=== PATIENT | male | born 1990 | race Two or more races ===

== ENCOUNTER 2025-04-05 10:34 | Outpatient (CLI) | payer OTHER ==
[2025-04-05 10:50] LABS: Urine Bacteria None Seen /hpf (None Seen)
[2025-04-05 11:00] LABS: Urine Blood TRACE /uL (Negative); Urine Clarity Clear (Clear); Urine Color Yellow (Yellow); Urine Hyaline Cast FEW /lpf (0 - 2); Urine Mucus FEW (None Seen); Urine Protein, UAD Negative (Negative); Urine Specific Gravity 1.028 (1.001-1.035); Urine Squamous Epithelial Cell None Seen /hpf (<5); Urine Urobilinogen Normal (Negative); Urine WBC < 1 /HPF (0-3); Urine pH 5.5 (5.0-9.0)
[2025-04-05 11:16] LABS: Basophils # (auto) 0 10 ^3/uL (0-0.2); Basophils % (auto) 0.4 % (0.0-2.0); Eosinophils # (auto) 0 10 ^3/uL (0-0.8); Eosinophils % (auto) 0.2 % (0.0-7.0); Hematocrit 42.6 % (41.0-53.0); Hemoglobin 14.9 g/dL (13.5-17.5); Mean Corpuscular Hemoglobin 32.5 pg (28.0-32.0); Mean Corpuscular Volume 92.8 fL (80.0-100.0); Monocytes # (auto) 0.3 10 ^3/uL (0-1.3); Monocytes % (auto) 4.7 % (0.0-12.0); Neutrophils # (auto) 4.2 10 ^3/uL (1.6-8.6); Neutrophils % (auto) 75.7 % (37.0-80.0); Platelet Count (auto) 218 10^3/uL (140-450); Red Blood Cells 4.59 10^6/uL (4.5-5.90); Red Cell Distribution Width 13.4 % (11.8-14.3); White Blood Cell 5.5 10^3/uL (4.4-10.8)
[2025-04-05 11:28] LABS: Prostate Specific Antigen 1.42 ng/mL (0.0-4.0)
[2025-04-05 11:29] LABS: % Iron Saturation 40.7 % (20-55)
[2025-04-05 11:33] LABS: Alanine Aminotransferase 12 U/L (7-40); Albumin 4.3 g/dL (3.2-4.8); Alkaline Phosphatase 62 U/L (46-116); Anion Gap 11 (5-15); Aspartate Aminotransferase 13 U/L (13-40); BUN/Creatinine Ratio 16.3 (10.0-20.0); Blood Urea Nitrogen 14 mg/dL (9-23); Calcium 9.7 mg/dL (8.7-10.4); Carbon Dioxide 24 mmol/L (20-31); Chloride 108 mmol/L (98-107); Cholesterol 172 mg/dL (< 200); Glucose 83 mg/dL (74-106); HDL Cholesterol 48 mg/dL (40-59); LDL Cholesterol 117 mg/dL (< 100); Magnesium 1.8 mg/dL (1.6-2.6); Sodium 143 mmol/L (136-145); Total Protein 6.5 g/dL (5.7-8.2); Triglycerides 62 mg/dL (< 150)
[2025-04-05 11:35] LABS: Bilirubin, Total 2.1 mg/dL (0.2-1.0)
[2025-04-05 11:44] LABS: Uric Acid 5.1 mg/dL (3.7-9.2)
== END 2025-04-05 17:00 | disposition home or self-care (01) ==
LOC: LAB 10:34
PROVIDERS: ATTEND Family Medicine
DX: R63.6 Underweight (principal); Z68.1 Body mass index [BMI] 19.9 or less, adult; Z00.00 Encounter for general adult medical examination without abnormal findings
CPT/HCPCS: 36415; 80053; 80061; 81001; 82306; 82607; 83036; 83540; 83550; 83735; 84153; 84443; 84550; 85025; 87086